=== PATIENT | male | born 1970 | race Caucasian/White ===

== ENCOUNTER 2020-08-10 10:06 | Emergency (ER) | payer MEDICAID ==
[~2020-08-10] VITALS: Ht 167.6 cm; Wt 70.3 kg
[2020-08-10 13:04] VITALS: BP 110/74; Ht 167.6 cm; Wt 70.3 kg
[2020-08-10 13:11] LABS: CALCIUM 9.7 mg/dL (8.5-10.1); CARBON DIOXIDE 29.5 mmol/L (21-32); CHLORIDE SERUM 99 mmol/L (98-107); CREATININE SERUM 1.1 mg/dL (0.7-1.3); GFR1 > 60 mL/min; GLUCOSE SERUM 166 mg/dL (74-106); SODIUM SERUM 138 mmol/L (136-145)
[2020-08-10 13:15] LABS: ALKALINE PHOSPHATASE 99 U/L (46-116); ALT/SGPT 34 U/L (16-63); AST/SGOT 32 U/L (15-37); BILIRUBIN TOTAL 0.7 mg/dL (0.20-1.00); LIPASE 71 IU/L (73-393)
[2020-08-10 13:27] LABS: BASOPHIL % 0.4 % (0.2-1.5); PLATELET COUNT 311 x10^3mcL (152-348); RED CELL DISTRIBUTION WIDTH 13.3 % (12.1-16.2)
[2020-08-10 13:56] LABS: ALBUMIN 3.2 g/dL (3.4-5.0); TOTAL PROTEIN, SERUM 8.4 g/dL (6.4-8.2)
[2020-08-10 16:17] LABS: UA SPECIFIC GRAVITY >=1.030 (1.005-1.035); microscopic required? YES; urine erythrocyte 1+ (NEGATIVE)
== END 2020-08-10 15:39 | disposition left against medical advice (07) ==
LOC: ED 10:06
PROVIDERS: Emergency Medicine
DX: N45.1 Epididymitis (principal)
CPT/HCPCS: 87491; 87591; J0696